=== PATIENT | female | born 1980 | race African-American/Black ===

== ENCOUNTER 2018-02-21 12:30 | Emergency (ER) | payer OTHER ==
[2018-02-21 12:38] VITALS: BP 125/63; PULSE 54; TEMP 97.8; BMI 38.3
--- NOTE | 2018-02-21 14:07 | PDOC ---
History of Present Illness - General Chief Complaint: Cold Symptoms Stated Complaint: COLD SYMPTOMS Time Seen by Provider: 02/21/18 13:36 History Source: Patient Exam Limitations: No Limitations Past History - Past Medical History Allergies/Adverse Reactions: Allergies Allergy/AdvReac Type Severity Reaction Status Date / Time Penicillins Allergy Verified 02/21/18 12:37 Home Medications: Ambulatory Orders No Home Medications 0 dose .ROUTE UTDICT 06/05/13 COPD: No - Suicide/Smoking/Psychosocial Hx Smoking History: Never smoked Have you smoked in the past 12 months: No Number of Cigarettes Smoked Daily: 3 Information on smoking cessation initiated: No Hx Alcohol Use: No Drug/Substance Use Hx: No *Physical Exam - Vital Signs Last Vital Signs Temp Pulse Resp BP Pulse Ox 97.8 F 54 L 16 125/63 100 02/21/18 12:30 02/21/18 12:30 02/21/18 12:30 02/21/18 12:30 02/21/18 12:30 - Physical Exam General Appearance: No: Apparent Distress HEENT: positive: Normal ENT Inspection, Pharynx Normal. negative: Muffled/ Hoarse voice, Pharyngeal Erythema, Tonsillar Exudate, Tonsillar Erythema, Nasal Congestion, Rhinorrhea, Sinus Tenderness, TM Bulging, TM Dull, TM Erythema Respiratory/Chest: positive: Lungs Clear, Normal Breath Sounds. negative: Respiratory Distress Cardiovascular: positive: Regular Rhythm, Regular Rate, S1, S2. negative: Murmur Gastrointestinal/Abdominal: positive: Normal Bowel Sounds, Soft. negative: Tender, Distended, Guarding, Rebound Integumentary: positive: Normal Color Neurologic: positive: Fully Oriented, Alert, Normal Mood/Affect Moderate Sedation - Procedure Monitoring Vital Signs: Procedure Monitoring Vital Signs Temperature 97.8 F 02/21/18 12:30 Pulse Rate 54 L 02/21/18 12:30 Respiratory Rate 16 02/21/18 12:30 Blood Pressure 125/63 02/21/18 12:30 O2 Sat by Pulse Oximetry (%) 100 02/21/18 12:30 Medical Decision Making - Medical Decision Making 37 yo F with no sig pmh presents with L sided throat pain and L ear discomfort from yesterday. Patient's daughter also in ED for URI sxs. Denies fever, cough, rhinorrhea, congestion, sob, cp, abd pain, n/v/d PE unremarkable Possible viral syndrome Supportive care discussed 02/21/18 14:05 *DC/Admit/Observation/Transfer Diagnosis at time of Disposition: Viral syndrome - Discharge Dispostion Disposition: HOME Condition at time of disposition: Good Decision to Admit order: No - Referrals Referrals: Atif Vaca MD [Primary Care Provider] - 3 days - Patient Instructions Printed Discharge Instructions: DI for Viral Upper Respiratory Infection -- Adult - Post Discharge Activity
== END 2018-02-21 14:08 | disposition home or self-care (01) ==
LOC: JERFT 12:30
DX: J06.9 Acute upper respiratory infection, unspecified (principal); B97.89 Other viral agents as the cause of diseases classified elsewhere
CPT/HCPCS: 99281-25